=== PATIENT | female | born 1980 | race Caucasian/White ===

== ENCOUNTER 2025-02-05 08:46 | Emergency (ER) | payer BC, SELFPAY ==
[2025-02-05 08:50] VITALS: BP 120/79
[2025-02-05 09:11] VITALS: BMI 25.6
[2025-02-05 09:36] LABS: Hematocrit 29.5 % (37.0-47.0); Hemoglobin 8.8 g/dL (12.0-16.0); Mean Corp Hgb Conc. 29.8 g/dL (33.0-37.0); Mean Corpuscular Volume 67.8 fL (81.0-99.0); Nucleated Red Blood Cells % 0 %; Platelet Count 326 10^3/uL (130-400); Red Cell Dist. Width 16.1 % (11.5-14.5)
[2025-02-05 09:47] LABS: HCG, Serum Qualitative Screen Negative
[2025-02-05 09:58] LABS: Blood Urea Nitrogen 17 mg/dl (7-17); Calcium 9.3 mg/dl (8.4-10.2); Carbon Dioxide 24 mmol/L (22-30); Chloride 108 mmol/L (98-107); Estimated Creatinine Clearance 105 ml/min; Glucose 89 mg/dl (70-99); Potassium 4.4 mmol/L (3.5-5.1); Sodium 137 mmol/L (135-145); eGFR > 60.00
[2025-02-05 10:10] VITALS: BP 109/68
--- NOTE | 2025-02-05 10:34 | ED.GENMED ---
Addendum entered and electronically signed by JONATHAN Kaur 02/07/25 08:53:
Urine cx with strep agalactiae: Pt did not get macrobid filled no s/s. based on urine cx cefdinir sent to pharmacy. d/c close f/u with TRAVELIFT OPERATOR for contineud f/u and eval.
Original Note:
History of Present Illness
General
Chief Complaint: Vaginal Bleeding
Source: patient
Time Seen by Provider: 02/05/25 08:55
History of Present Illness
History of Present Illness:
44-year-old female with no significant past medical history presents to the emergency department for evaluation of a heavy menstrual period which started this past Monday, bleeding seem to get worse on Monday and has been persistent since then
noting she is passing large clots. Over the last 24 to 48 hours she has started to feel lightheaded, fatigued, headache and lower abdominal cramping accompanied with intermittent nausea. Patient states that every few months she will get this but
today's symptoms seem to be more severe than usual. She does not follow regularly with a TRAVELIFT OPERATOR. Does not take any oral contraceptives. Denies any concern for . No urinary symptoms. Does not take any iron supplementation or needed blood
transfusion in the past.
Past History
Past History
ED Past Medical History: None and Other ('I've had a lot of tooth problems')
ED Past Surgical History: None
Social History
Tobacco: Non-smoker
Alcohol: Occasional
Drug: None
Personal: Single
Living: with family
Review of Systems
Review of Systems
All Other Systems: ROS reviewed and negative except as documented in HPI and ROS
Phy Exam
Physical Exam
Physical Exam:
GENERAL: Alert , in no apparent distress, but appears somewhat uncomfortable
EYE: clear conjunctiva b/l
HEAD: NCAT
ENT: o/p clr, mmm.
CARDIAC: Regular rate and rhythm .
LUNGS: Clear breath sounds bilaterally, no acute respiratory distress, no wheezes/rales/rhonchi
ABDOMEN: Soft, mild suprapubic tenderness, no r/g, no cvat
NEUROLOGICAL: Alert and oriented
SKIN: Warm and dry, skin intact. Pale appearing
MUSCULOSKELETAL: No edema, well perfused.
PSYCH: Normal and appropriate interaction.
Scores
Heart Failure Risk
Heart Failure Risk Score: Not Applicable
Heart Score for Chest Pain Patients
STEMI patient?: Not applicable
Withdrawal Assessment of Alcohol
Withdrawal Assessment Completed?: Not applicable
Course
Orders/Labs/Results
Orders:
Orders
02/05/25 08:58
Test Result ONCE
02/05/25 09:09
US Pelvis W Transvag Combined Urgent
Reason For Exam: menorrhagia, pain
02/05/25 09:21
Type+Screen Urgent
Basic Metabolic Panel Urgent
Complete Blood Count/With Diff Urgent
HCG, Serum Qualitative Screen Urgent
02/05/25 11:14
Urinalysis Reflex To Culture Urgent
Date Specimen was Collected: 02/05/25
Time Specimen was Collected: 10:59
Comment: Pt has a heavy menses
Urine Microscopic Reflex Cult Urgent
Urine Culture Urgent
TAMMY Source: U
Specimen Description:
Date Specimen was Collected: 02/05/25
Time Specimen was Collected: 10:59
Abnormal Lab Results
02/05/25 02/05/25
09:21 11:14
Hgb 8.8 L g/dL
(12.0-16.0)
Hct 29.5 L %
(37.0-47.0)
MCV 67.8 L fL
(81.0-99.0)
MCH 20.2 L pg
(27.0-31.0)
MCHC 29.8 L g/dL
(33.0-37.0)
RDW 16.1 H %
(11.5-14.5)
Absolute Lymphs (auto) 0.6 L 10^3/uL
(1.2-3.4)
Neutrophils % 76.2 H %
(42.2-75.2)
Lymphocytes % 12.8 L %
(20.5-51.1)
Chloride 108 H mmol/L
(98-107)
Ur Occult Blood Reflex 4+ A
(Negative)
Urine Nitrite (Reflex) Positive A
(Negative)
Leukocyte Esterase Rfl 2+ A
(Negative)
Urine RBC >100 A /HPF
(0-2)
Urine WBC (Reflex) 30-40 A /HPF
(0-5)
Urine Bacteria (Reflex) Many A
(Negative)
Urine Albumin (Reflex) 3+ A
(Neg - Trace)
02/05/25 09:21
02/05/25 09:21
Vital Signs
Initial and Last Documented VS:
Initial Vital Signs
Temp Pulse Resp BP Pulse Ox
99.2 F 83 16 120/79 100
02/05/25 08:50 02/05/25 08:50 02/05/25 08:50 02/05/25 08:50 02/05/25 08:50
Last Documented Vital Signs
Temp Pulse Resp BP Pulse Ox
99.2 F 83 16 103/60 100
02/05/25 08:50 02/05/25 08:50 02/05/25 08:50 02/05/25 12:00 02/05/25 10:35
MDM/Problems Addressed
Differential Diagnosis Includes:
Menorrhagia
Anemia
Fibroid uterus
Endometriosis
Perimenopause
Urinary tract infection
MDM/Problems Addressed:
44-year-old female presenting to the ER for evaluation of heavy vaginal bleeding that has been ongoing since this past Monday, worsening today. Now accompanied with lightheadedness, headache, fatigue and generally feeling unwell. Clinical concern
for anemia given the reported symptoms and bleeding. Will check labs including type and screen. Ultrasound ordered. Anticipate patient will need close follow-up with TRAVELIFT OPERATOR and will need information for this follow-up.
*Radiology
Radiology exam reviewed: radiology read reviewed
*Pulse Oximetry
SaO2: 100
Oxygen Mode of Delivery: Room air
Patient hypoxic: no
*Critical Care Note
Total Time (30-74mins, 75-104mins- exclusive of procedures): Not Applicable
Comment
Comment:
Hemoglobin 8.8, last hemoglobin on record over 15 years ago. Anticipate starting ferrous sulfate for outpatient use and will consult TRAVELIFT OPERATOR.
Patient Management
Discussion with other providers: PCP and Fire Observer
Escalation/DeEscalation of care consider admission/obs:
Patient's ultrasound shows a suspected uterine fibroid. Her symptoms are currently under control. I discussed the case with TRAVELIFT OPERATOR who agrees with plan for ferrous sulfate 325 mg daily as well as TXA 1.3 g 3 times a day for 5 days to help with
bleeding. Patient will follow-up in office. She also appears to have a possible urinary tract infection so will cover with Macrobid for UTI. I also notified the patient's primary care provider as she will likely need repeat labs in a month to
ensure her hemoglobin has remained stable or improved.
ED Attending Note
-
Portions of this chart may have been created with voice recognition software.� Occasional wrong word or��sound alike� substitutions may have occurred due to the inherent limitations of voice recognition software.
Discharge Plan
Departure
Patient Disposition: Home (Routine Discharge)
Date of Disposition: 02/05/25
Time of Disposition: 12:03
Patient with high blood pressure during this ER visit?: No
Discharge Problem:
Menorrhagia
Instructions: Heavy Periods (DC)
Prescriptions:
New
tranexamic acid 650 mg tablet
1,300 mg PO TID 5 Days Qty: 30 0RF
ferrous sulfate 325 mg (65 mg iron) tablet
325 mg PO DAILY Qty: 60 0RF
nitrofurantoin monohyd/m-cryst [Macrobid] 100 mg capsule
100 mg PO Q12H 7 Days Qty: 14 0RF
No Action
No Current Medications
clindamycin HCl 300 MG capsule
300 mg PO TID Qty: 30 0RF
acetaminophen-codeine 1 TABLET tablet
1 tab PO Q4HPRN PRN (Reason: moderate pain) Qty: 20 0RF
Referrals:
Usha Null CRNP [Family Provider, Internal Medicine]
Millie Seaman MD [Active, Gynecology]
Interventions
Interventions:
*Risk Screen - Suicide Last Done: 02/05/25 09:11
*General Assessment Last Done: 02/05/25 09:11
*Neglect/Abuse Screening Last Done: 02/05/25 09:11
*ED- Fall Risk Assessment Last Done: 02/05/25 09:11
*ED COVID-19 Vaccine History Last Done: 02/05/25 09:11
*Nursing Disposition Last Done: 02/05/25 12:59
ED-Female Genitourinary Assessment Last Done: 02/05/25 09:13
Discharge Date and Time
Discharge Date/Time: 02/05/25 12:59
Print Language: TRINIDADIAN
[2025-02-05 11:13] VITALS: BP 109/69
[2025-02-05 11:31] LABS: Urine Character Cloudy (Clear)
[2025-02-05 12:00] VITALS: BP 103/60
[2025-02-05 12:05] LABS: Urine Squamous Cell >30 /LPF (Few); Urine Urothelial Cell 0-2 /LPF (FEW)
[2025-02-05 12:09] LABS: Urine Red Blood Cell >100 /HPF (0-2); Urine White Cell 30-40 /HPF (0-5)
== END 2025-02-05 12:59 | disposition home or self-care (01) ==
LOC: EMR 08:46
PROVIDERS: Physician Assistant Medical; EMERGENCY PHYSICIAN Emergency Medicine; FAMILY PHYSICIAN Nurse Practitioner Primary Care
DX: N92.0 Excessive and frequent menstruation with regular cycle (principal); R42 Dizziness and giddiness; R10.30 Lower abdominal pain, unspecified; R51.9 Headache, unspecified; R53.83 Other fatigue; R11.0 Nausea
CPT/HCPCS: 99284; 76830; 76856; 80048; 81003; 81015; 84703; 85025; 86850; 86900; 86901; 87077; 87086; 87147